=== PATIENT | female | born 1945 | race Caucasian/White ===

== ENCOUNTER 2023-12-27 11:09 | Emergency (ER) | payer MEDICARE, BC ==
[2023-12-27] MEDS ORDERED: fentaNYL 50 mcg/mL 1 mL Vial SLOW IVP SCH (12:30)
[2023-12-27] MEDS ORDERED: Etomidate 40 MG (20 mL) VIAL ONE (13:32)
[2023-12-27] MEDS ORDERED: cloNIDine 0.1 MG TAB ONE (14:28)
[2023-12-27] MEDS ORDERED: Acetaminophen 325 MG TAB ONE (14:28)
[2023-12-27] MEDS ORDERED: Boostrix 0.5 ML (Tdap) VIAL (>/=7 yrs of age) ONE (14:29)
== END 2023-12-27 15:02 | disposition home or self-care (01) ==
LOC: CSHERS 11:09
DX: S52.501A Unspecified fracture of the lower end of right radius, initial encounter for closed fracture (principal); S02.40CA Maxillary fracture, right side, initial encounter for closed fracture; S01.81XA Laceration without foreign body of other part of head, initial encounter; I10 Essential (primary) hypertension; W18.2XXA Fall in (into) shower or empty bathtub, initial encounter; W22.8XXA Striking against or struck by other objects, initial encounter
CPT/HCPCS: 25605; 70450; 73110; 90471; 90715; 96374; 96375; 99284; J3010

== ENCOUNTER 2024-01-25 17:56 | Emergency (ER) | payer MEDICARE, BC | END 2024-01-25 23:58 | disposition short-term general hospital (02) | LOC: CSHERS 17:56 | DX: S32.010A Wedge compression fracture of first lumbar vertebra, initial encounter for closed fracture (principal); S32.020A Wedge compression fracture of second lumbar vertebra, initial encounter for closed fracture; S32.040A Wedge compression fracture of fourth lumbar vertebra, initial encounter for closed fracture; S22.080A Wedge compression fracture of T11-T12 vertebra, initial encounter for closed fracture; G96.00 Cerebrospinal fluid leak, unspecified; W19.XXXA Unspecified fall, initial encounter | CPT/HCPCS: 70450; 71260; 72125; 74177; 80053; 84484; 85025; 93005 ==

== ENCOUNTER 2024-02-15 08:40 | Outpatient (CLI) | payer MEDICARE, BC | END 2024-02-15 08:41 | disposition home or self-care (01) | LOC: CSHCT 08:40 | PROVIDERS: ATTEND Neurological Surgery | DX: S06.9X9D Unspecified intracranial injury with loss of consciousness of unspecified duration, subsequent encounter (principal); G96.08 Other cranial cerebrospinal fluid leak; Z86.73 Personal history of transient ischemic attack (TIA), and cerebral infarction without residual deficits | CPT/HCPCS: 70450 ==